=== PATIENT | male | born 1955 | race Caucasian/White ===

== ENCOUNTER 2018-03-25 17:13 | Inpatient (IN) | payer OTHER ==
[~2018-03-25] VITALS: Ht 175.3 cm; Wt 77.1 kg
[2018-03-25] MEDS ORDERED: PSEUDOEPHEDRINE60 MG PO (17:26)
[2018-03-25] MEDS ORDERED: TRAZODONE HCL50 MG ORAL ×2 (17:26→19:24)
[2018-03-25] MEDS ORDERED: LISINOPRIL20 MG ORAL (17:26)
--- NOTE | 2018-03-25 17:35 | NUR ---
ED Nurse Note: patient walkwd in by him self from home with steady gait, he complains for pain in his RLQ of the abdomen, no V/N/D. Patient AAO x 4, skin is warm to touch, dry and intact. Respiration is even no SOB noted.
[2018-03-25] MEDS ORDERED: Isovue-300 100ml vial INJ PRN (17:45)
--- NOTE | 2018-03-25 17:52 | Emergency Room Report ---
History of Present Illness General Chief Complaint: Abdominal Pain Source: Patient Present Illness HPI Patient is a 62-year-old male presented after increased right lower abdominal pain. Patient reports having gradual onset of pain over the past few days. He reported having initially generalized abdominal pain for approximately 3 days. This subsequently localized to the right lower abdomen. Patient a prior history of HIV. He denies being febrile. He had not been vomiting. He denies any urinary symptoms. He denies any rectal bleeding. He reports having normal bowel movements. Allergies: Coded Allergies: No Known Allergies (Unverified , 03/25/18) Patient History Past Medical History: see triage record Reviewed Nursing Documentation: PMH: Agreed; PSxH: Agreed Nursing Documentation-PMH Past Medical History: No History, Except For Hx Hypertension: Yes Review of Systems All Other Systems: negative except mentioned in HPI Physical Exam Vital Signs Date Time Temp Pulse Resp B/P (MAP) Pulse Ox O2 Delivery O2 Flow Rate FiO2 03/25/18 17:19 98.4 78 17 145/88 99 Room Air Sp02 EP Interpretation: reviewed, normal General Appearance: normal inspection, well appearing, no apparent distress, alert, GCS 15 Head: atraumatic ENT: normal ENT inspection, hearing grossly normal, normal voice Neck: normal inspection, full range of motion, supple, no bony tend Respiratory: normal inspection, lungs clear, normal breath sounds, no respiratory distress, no retraction, no wheezing Cardiovascular #1: regular rate, rhythm, no edema Gastrointestinal: normal bowel sounds, soft, no guarding, no hernia, tenderness - suprapubic, right lower abdomen Genitourinary: no CVA tenderness Musculoskeletal: normal inspection, back normal, normal range of motion Neurologic: normal inspection, alert, responsive, speech normal Psychiatric: normal inspection, judgement/insight normal, mood/affect normal Skin: normal inspection, normal color, no rash Medical Decision Making Diagnostic Impression: Primary Impression: Appendicitis ER Course Patient presented for abdominal pain. Differential diagnoses included ischemic bowel, appendicitis, perforated viscus, abdominal aortic aneurysm, inferior myocardial infarction, viral gastroenteritis among others. Because of complexity of patient's case laboratory testing and imaging studies were ordered.Laboratory testing was notable for normal white blood count. Patient was noted to have persistent right-sided abdominal pain. CT of the abdomen pelvis read by radiology showed 1.8 cm appendix with appendicolith and inflammatory changes. Patient was given Zosyn.Dr. Bryant was contacted for surgical consult. Dr. Marshal Byrd was contacted for Dr. Mittal for inpatient management due to covering physician for Dr. Alber Cobb Labs Test 03/25/18 17:50 White Blood Count 9.5 K/UL (4.8-10.8) Red Blood Count 4.59 M/UL (4.70-6.10) Hemoglobin 15.1 G/DL (14.2-18.0) Hematocrit 44.9 % (42.0-52.0) Mean Corpuscular Volume 98 FL (80-99) Mean Corpuscular Hemoglobin 32.9 PG (27.0-31.0) Mean Corpuscular Hemoglobin Concent 33.6 G/DL (32.0-36.0) Red Cell Distribution Width 12.2 % (11.6-14.8) Platelet Count 209 K/UL (150-450) Mean Platelet Volume 6.1 FL (6.5-10.1) Neutrophils (%) (Auto) 69.2 % (45.0-75.0) Lymphocytes (%) (Auto) 18.8 % (20.0-45.0) Monocytes (%) (Auto) 8.2 % (1.0-10.0) Eosinophils (%) (Auto) 2.9 % (0.0-3.0) Basophils (%) (Auto) 0.9 % (0.0-2.0) Prothrombin Time 9.8 SEC (9.30-11.50) Prothromb Time International Ratio 0.9 (0.9-1.1) Activated Partial Thromboplast Time 29 SEC (23-33) Urine Color Yellow Urine Appearance Clear Urine pH 5 (4.5-8.0) Urine Specific [place] 1.025 (1.005-1.035) Urine Protein 2+ (NEGATIVE) Urine Glucose (UA) Negative (NEGATIVE) Urine Ketones 1+ (NEGATIVE) Urine Blood 2+ (NEGATIVE) Urine Nitrite Negative (NEGATIVE) Urine Bilirubin Negative (NEGATIVE) Urine Urobilinogen Normal MG/DL (0.0-1.0) Urine Leukocyte Esterase 1+ (NEGATIVE) Urine RBC 5-10 /HPF (0 - 0) Urine WBC 2-4 /HPF (0 - 0) Urine Squamous Epithelial Cells None /LPF (NONE/OCC) Urine Bacteria Few /HPF (NONE) Sodium Level 138 MMOL/L (136-145) Potassium Level 3.8 MMOL/L (3.5-5.1) Chloride Level 102 MMOL/L (98-107) Carbon Dioxide Level 30 MMOL/L (21-32) Anion Gap 7 mmol/L (5-15) Blood Urea Nitrogen 15 mg/dL (7-18) Creatinine 1.4 MG/DL (0.55-1.30) Estimat Glomerular Filtration Rate 51.2 mL/min (>60) Glucose Level 94 MG/DL (74-106) Calcium Level 9.1 MG/DL (8.5-10.1) Total Bilirubin 0.3 MG/DL (0.2-1.0) Aspartate Amino Transf (AST/SGOT) 26 U/L (15-37) Alanine Aminotransferase (ALT/SGPT) 30 U/L (12-78) Alkaline Phosphatase 84 U/L (46-116) Troponin I 0.000 ng/mL (0.000-0.056) Total Protein 8.0 G/DL (6.4-8.2) Albumin 3.3 G/DL (3.4-5.0) Globulin 4.7 g/dL Albumin/Globulin Ratio 0.7 (1.0-2.7) Lipase 151 U/L (73-393) EKG Diagnostic Results Rate: normal - 82 Rhythm: NSR ST Segments: no acute changes Last Vital Signs Date Time Temp Pulse Resp B/P (MAP) Pulse Ox O2 Delivery O2 Flow Rate FiO2 03/25/18 17:19 98.4 78 17 145/88 99 Room Air Status: unchanged Disposition: ADMITTED INPATIENT Condition: Serious Referrals: NON PHYSICIAN (PCP) Pollo Quintana MD Mar 25, 2018 17:52
[2018-03-25 18:05] LABS: BASOPHILS % (AUTO) 0.9 % (0.0-2.0); EOSINOPHILS % (AUTO) 2.9 % (0.0-3.0); HEMATOCRIT 44.9 % (42.0-52.0); HEMOGLOBIN 15.1 G/DL (14.2-18.0); LYMPHOCYTES % (AUTO) 18.8 % (20.0-45.0); MEAN CORPUSCULAR VOLUME 98 FL (80-99); MONOCYTES % (AUTO) 8.2 % (1.0-10.0); NEUTROPHILS % (AUTO) 69.2 % (45.0-75.0); PLATELET COUNT 209 K/UL (150-450); RED BLOOD COUNT 4.59 M/UL (4.70-6.10); RED CELL DISTRIBUTION WIDTH 12.2 % (11.6-14.8); WHITE BLOOD COUNT 9.5 K/UL (4.8-10.8)
--- NOTE | 2018-03-25 18:09 | Consultation ---
History of Present Illness General Date patient seen: Mar 25, 2018 Reason for Hospitalization: Abdominal Pain Present Illness HPI 62 year old male with Hx of HIV, HTN, dyslipidemia presented with 3-4 days of abdominal discomfort. states pain initially mid abdominal but has since localized to the RLQ. Went to his PCP today for evaluation. PCP astutely identified possibility of appendicitis given history and exam and referred him to ED for evaluation by surgeon. I was called to evaluate patient. patient seen, chart reviewed, patient examined. no n/v/f/c. normal BM's. had had 3 doses of oral Augmentin 500mg already. pain cramping RLQ without radiation. no prior events. states outside labs demonstrated elevated ESR and leukocytosis Allergies: Coded Allergies: No Known Allergies (Unverified , 03/25/18) Medication History Scheduled Lisinopril (Lisinopril*), 20 MG ORAL DAILY, (Reported) Testosterone Cypionate (Testosterone Cypionate), 400 MG IM every 2 weeks, ( Reported) Scheduled PRN Acetaminophen* (Acetaminophen Extra Strength*), 1,000 MG ORAL Q6H PRN for chills , (Reported) Ibuprofen* (Motrin*), 600 MG ORAL THREE TIMES A DAY PRN for chills, (Reported) Pseudoephedrine Hcl* (Nexafed*), 30 MG ORAL Q6H PRN for congestion, (Reported) Trazodone Hcl* (Desyrel*), 50 MG ORAL BEDTIME PRN for insomnia, (Reported) Patient History History Provided By: Patient, Medical Record, PMD Healthcare decision maker Resuscitation status Advanced Directive on File Past Medical/Surgical History Past Medical/Surgical History: (1) Abdominal pain Review of Systems Review of Symptoms General ROS: no weight loss or fever Psychological ROS: no depression or mood changes, no memory loss Ophthalmic ROS: no visual changes or eye irritation ENT ROS: no nasal congestion, hearing loss, dizziness Allergy and Immunology ROS: no allergic symptoms or urticaria Hematological and Lymphatic ROS: no swollen glands, unusual bleeding or bruising Endocrine ROS: no polyuria, polydipsia, weight changes, temperature intolerance Respiratory ROS: no cough, shortness of breath, or wheezing Cardiovascular ROS: no chest pain or dyspnea on exertion Gastrointestinal ROS: denies abdominal pain, bright red blood in stool. Musculoskeletal ROS: no myalgias or arthralgias Neurological ROS: no TIA or stroke symptoms Dermatological ROS: no new or changing skin lesions, rashes or pruritis Physical Exam Physical Exam General appearance: alert, cooperative, no distress, appears stated age Head: Normocephalic, without obvious abnormality, atraumatic Eyes: conjunctivae/corneas clear. PERRL, EOM's intact. Fundi benign Throat: Lips, mucosa, and tongue normal. Teeth and gums normal Neck: supple, symmetrical, trachea midline, no adenopathy, thyroid: not enlarged, symmetric, no tenderness/mass/nodules, no carotid bruit and no JVD Lungs: clear to auscultation bilaterally Heart: regular rate and rhythm, S1, S2 normal, no murmur, click, rub or gallop Abdomen: soft, tender in RLQ with rebound. Bowel sounds normal. No masses, no organomegaly Extremities: extremities normal, atraumatic, no cyanosis or edema Pulses: 2+ and symmetric Skin: Skin color, texture, turgor normal. No rashes or lesions Neurologic: Grossly normal Last 24 Hour Vital Signs Date Time Temp Pulse Resp B/P (MAP) Pulse Ox O2 Delivery O2 Flow Rate FiO2 03/25/18 17:19 98.4 78 17 145/88 99 Room Air Laboratory Tests Test 03/25/18 17:50 White Blood Count Pending Red Blood Count Pending Hemoglobin Pending Hematocrit Pending Mean Corpuscular Volume Pending Mean Corpuscular Hemoglobin Pending Mean Corpuscular Hemoglobin Concent Pending Red Cell Distribution Width Pending Platelet Count Pending Mean Platelet Volume Pending Neutrophils (%) (Auto) Pending Lymphocytes (%) (Auto) Pending Monocytes (%) (Auto) Pending Eosinophils (%) (Auto) Pending Basophils (%) (Auto) Pending Prothrombin Time Pending Prothromb Time International Ratio Pending Activated Partial Thromboplast Time Pending Urine Color Pending Urine Appearance Pending Urine pH Pending Urine Specific [place] Pending Urine Protein Pending Urine Glucose (UA) Pending Urine Ketones Pending Urine Blood Pending Urine Nitrite Pending Urine Bilirubin Pending Urine Urobilinogen Pending Urine Leukocyte Esterase Pending Sodium Level Pending Potassium Level Pending Chloride Level Pending Carbon Dioxide Level Pending Blood Urea Nitrogen Pending Creatinine Pending Estimat Glomerular Filtration Rate Pending Glucose Level Pending Calcium Level Pending Total Bilirubin Pending Aspartate Amino Transf (AST/SGOT) Pending Alanine Aminotransferase (ALT/SGPT) Pending Alkaline Phosphatase Pending Troponin I Pending Total Protein Pending Albumin Pending Globulin Pending Lipase Pending Height (Feet): 5 Height (Inches): 9.00 Weight (Pounds): 170 Medications Current Medications Medications (Trade) Dose Ordered Sig/Nathan Route PRN Reason Start Time Stop Time Status Last Admin Dose Admin Iopamidol (Isovue-300 100ml) 100 ml NOW PRN INJ Radiology Procedure 03/25/18 17:45 Piperacillin Sod/ Tazobactam Sod 3.375 gm/Sodium Chloride 110 ml @ 220 mls/hr ONCE ONCE IVPB 03/25/18 18:15 03/25/18 18:44 Assessment/Plan Problem List: (1) Abdominal pain Assessment & Plan: 62M with abdominal pain. Likely appendicitis given history and exam. discussed options and recommendations. recommend CT scan to ensure appendicitis and not complicated given duration NPO IV fluids IV Abx pending labs thank you. will follow with recs. ICD Codes: R10.9 - Unspecified abdominal pain SNOMED: [id number] Juan Bryant Mar 25, 2018 18:09
[2018-03-25 18:10] LABS: APPEARANCE,URINE CLEAR; BILIRUBIN, URINE NEGATIVE (NEGATIVE); GLUCOSE, URINE (UA) NEGATIVE (NEGATIVE); KETONES,URINE 1+ (NEGATIVE); LEUKOCYTE ESTERASE ,URINE 1+ (NEGATIVE); NITRITE,URINE NEGATIVE (NEGATIVE); PH,URINE 5 (4.5-8.0); PROTEIN,URINE 2+ (NEGATIVE); UROBILINOGEN,URINE NORMAL MG/DL (0.0-1.0)
[2018-03-25 18:12] LABS: COLOR,URINE YELLOW
[2018-03-25] MEDS ORDERED: Piperacillin/Tazobactam 3.375 GM in NS 110 ML IVPB ONE (18:15)
[2018-03-25 18:17] LABS: INR 0.9 (0.9-1.1)
[2018-03-25 18:22] LABS: ANION GAP 7 mmol/L (5-15); BLOOD UREA NITROGEN 15 mg/dL (7-18); CALCIUM 9.1 MG/DL (8.5-10.1); CARBON DIOXIDE 30 MMOL/L (21-32); CHLORIDE 102 MMOL/L (98-107); CREATININE 1.4 MG/DL (0.55-1.30); POTASSIUM 3.8 MMOL/L (3.5-5.1); SODIUM 138 MMOL/L (136-145)
[2018-03-25 18:26] LABS: ALANINE AMINOTRANSFERASE 30 U/L (12-78); ALBUMIN 3.3 G/DL (3.4-5.0); ALBUMIN/GLOBULIN RATIO 0.7 (1.0-2.7); ALKALINE PHOSPHATASE 84 U/L (46-116); ASPARTATE AMINO TRANSFERASE 26 U/L (15-37); BILIRUBIN,TOTAL 0.3 MG/DL (0.2-1.0)
[2018-03-25 18:40] VITALS: BP 142/90
--- NOTE | 2018-03-25 18:59 | NUR ---
ED Nurse Note: patient went for CT of abdomen
--- NOTE | 2018-03-25 19:02 | NUR ---
HAND-OFF: Report given to LIVE Muñoz.
--- NOTE | 2018-03-25 19:13 | NUR ---
ED Nurse Note: received report from Harpreet MANCINI and assumed care, pt came back from CT, ERMD at the bedsidevss, NSR on radiation monitor, airway intact, resp even and unlabored, will cont monitor. pt advised to notify staff if needed assist.
[2018-03-25] MEDS ORDERED: TESTOSTERO200 MG/1 M IM ×2 (19:22)
[2018-03-25] MEDS ORDERED: ACETAMINOPHEN500 M3 ORAL (19:22)
[2018-03-25] MEDS ORDERED: IBUPROFEN600 MG ORAL (19:22)
[2018-03-25] MEDS ORDERED: NEXAFED30 MG ORAL (19:24)
--- NOTE | 2018-03-25 19:55 | Diagnostic Imaging Report ---
History: ABD PAIN Exam: CT ABDOMEN + PELVIS With Contrast Technique more: CTDI is 14.12 mGy and DLP is 720 mGy-cm. Technique more: One or more of the following dose reduction techniques were used: automated exposure control, adjustment of the mA and/or kV according to patient size, use of iterative reconstruction technique. Comparison: None available FINDINGS: Small platelike area of scar or atelectasis right base. Abdominal solid organs, gallbladder and abdominal aorta appear within limits. Abnormal fluid-filled distended appendix measuring 1.8 cm with surrounding stranding and edema and 9 mm appendicolith at its base and wall edema of the adjacent cecum for example axial 58 and coronal 32. [place] artifact from right hip replacement. No evidence of abscess, bowel obstruction or free air identified. IMPRESSION: Abnormal fluid-filled distended appendix measuring 1.8 cm with surrounding stranding and edema and 9 mm appendicolith at its base and wall edema of the adjacent cecum for example axial 58 and coronal 32. [place] artifact from right hip replacement. No evidence of abscess, bowel obstruction or free air identified. [employer] 03/25/18 19:53 Call Doctor Regarding Appendicitis, called Dr. Quintana on 03/25 19:52 (-08:00)
--- NOTE | 2018-03-25 20:14 | NUR ---
ED Nurse Note: pt transferred to [place] via wheelchair with medtronics technician, all belongings sent with pt, report given to LIVE Bynum to continue care and endorsed care, pt vss, airway intact, resp even and unlabored, afebrile, -n/v/d, ambulatory w/ steady gait.
--- NOTE | 2018-03-25 20:20 | NUR ---
NURSE NOTES: Received report from NURSE CLINICIAN Stacey. Pt is A&O x4, ambulatory, VSS. IV site dry & intact. Pt on RA, denies SOB or distress. Pt c/o 2/10 pain in the RLQ of abdomen. notified of pt arrival, orders received & carried out. Belongings taken home w/ pt's partner, David. Pt oriented to room, call light in reach, bed in lowest position, side rails up x2. Will continue to monitor pt.
[2018-03-25] MEDS ORDERED: Morphine Sulfate 2mg/ml Inj IVP PRN (21:00)
[2018-03-25] MEDS: D5 1/2NS 1,000 ML IV SCH (22:18)
[2018-03-25] MEDS: TraZODone 50mg tab ORAL PRN (23:08)
[2018-03-25] MEDS: Acetaminophen 500mg (ES) tab ORAL PRN (23:08)
[2018-03-25 23:54] LABS: APPEARANCE,URINE CLEAR; BILIRUBIN, URINE NEGATIVE (NEGATIVE); COLOR,URINE PALE YELLOW; GLUCOSE, URINE (UA) NEGATIVE (NEGATIVE); KETONES,URINE NEGATIVE (NEGATIVE); LEUKOCYTE ESTERASE ,URINE 1+ (NEGATIVE); NITRITE,URINE NEGATIVE (NEGATIVE); PH,URINE 5 (4.5-8.0); PROTEIN,URINE 2+ (NEGATIVE); UROBILINOGEN,URINE NORMAL MG/DL (0.0-1.0)
[2018-03-26] VITALS (16 sets, daily range): BP systolic 112–166; BP diastolic 59–92
[2018-03-26 06:54] LABS: ANION GAP 6 mmol/L (5-15); BLOOD UREA NITROGEN 13 mg/dL (7-18); CALCIUM 8.9 MG/DL (8.5-10.1); CARBON DIOXIDE 28 MMOL/L (21-32); CHLORIDE 104 MMOL/L (98-107); CREATININE 1.2 MG/DL (0.55-1.30); POTASSIUM 3.7 MMOL/L (3.5-5.1); SODIUM 138 MMOL/L (136-145)
[2018-03-26 07:01] LABS: BASOPHILS % (AUTO) 0.6 % (0.0-2.0); EOSINOPHILS % (AUTO) 5.8 % (0.0-3.0); HEMATOCRIT 39.8 % (42.0-52.0); HEMOGLOBIN 13.9 G/DL (14.2-18.0); LYMPHOCYTES % (AUTO) 20.2 % (20.0-45.0); MEAN CORPUSCULAR VOLUME 96 FL (80-99); MONOCYTES % (AUTO) 10.7 % (1.0-10.0); NEUTROPHILS % (AUTO) 62.7 % (45.0-75.0); PLATELET COUNT 194 K/UL (150-450); RED BLOOD COUNT 4.13 M/UL (4.70-6.10); WHITE BLOOD COUNT 7.2 K/UL (4.8-10.8)
[2018-03-26] MEDS ORDERED: Neostigmine 1mg/ml 10ml Inj ONE (07:30)
[2018-03-26] MEDS ORDERED: LR 1000ml ONE (07:30)
--- NOTE | 2018-03-26 07:53 | NUR ---
HAND-OFF: Report given to Maribel RN. Pt is stable.
--- NOTE | 2018-03-26 08:00 | NUR ---
NURSE NOTES: received patient A/A/Ox4, ambulates with a steady gait. NPO for procedure. had voided and moved bm. patient appeared irritable and impulsive this am. kept bed in the lowest position. call light is within reach. siderails are up x2. will cont to monitor.
[2018-03-26] MEDS: Lisinopril 20mg tab ORAL SCH (08:53)
[2018-03-26] MEDS ORDERED: Midazolam 2mg/2ml Inj ONE (09:11)
[2018-03-26] MEDS ORDERED: fentaNYL 100 mcg/2 mL IV ONE (09:11)
[2018-03-26] MEDS ORDERED: Bupivacaine 0.25% Inj 30ml INJ ONE (09:13)
[2018-03-26] MEDS ORDERED: Bupivacaine w/Epi 0.5% 30ml Vial INJ ONE (09:13)
--- NOTE | 2018-03-26 09:15 | NUR ---
NURSE NOTES: hand off done with Bishnu(transporter) prior procedure. Dr Bryant @ bedside and speaking with the patient. patient had signed consent for procedure. IV heplock is patent and intact. patient able to ambulate without any distress. Kept NPO. will cont to monitor.
--- NOTE | 2018-03-26 09:21 | Pre-Procedure Note/Attestation ---
Pre-Procedure Note/Attestation Complete Prior to Procedure Planned Procedure: not applicable Procedure Narrative: laparoscopic appendectomy Indications for Procedure Pre-Operative Diagnosis: acute appendicitis Attestation I attest that I discussed the nature of the procedure; its benefits; risks and complications; and alternatives (and the risks and benefits of such alternatives ), prior to the procedure, with the patient (or the patient's legal b2b sales representative). I attest that, if there was a reasonable possibility of needing a blood transfusion, the patient (or the patient's legal b2b sales representative) was given the [facility] standardized written summary, pursuant to the [place] Blood Safety Act ([place] Health and Safety Code # 1645, as amended). I attest that I re-evaluated the patient just prior to the surgery and that there has been no change in the patient's H&P, except as documented below: Juan Bryant Mar 26, 2018 09:21
[2018-03-26] MEDS ORDERED: Succinylcholine 20mg/ml 10ml vial ONE (09:22)
[2018-03-26] MEDS ORDERED: Zemuron 50mg/5ml Inj IV ONE (09:22)
--- NOTE | 2018-03-26 09:23 | History and Physical ---
History of Present Illness General Date patient seen: Mar 26, 2018 Time patient seen: 09:22 Reason for Hospitalization: Abdominal Pain Present Illness HPI 62 year old man with HIV, HTN, dyslipidemia presented with 3-4 days of abdominal discomfort. Pain was initially mid abdominal but has since localized to the RLQ. Went to his PCP for evaluation. PCP astutely identified possibility of appendicitis given history and exam and referred him to ED for evaluation by surgeon. CT in ED suggested appendicitis and he was seen by general surgery who plans for appendectomy today. Denies fever, chills. Family Hx: No premature CAD Social Hx:No tobacco use Allergies: Coded Allergies: No Known Allergies (Unverified , 03/25/18) Medication History Scheduled Lisinopril (Lisinopril*), 20 MG ORAL DAILY, (Reported) Testosterone Cypionate (Testosterone Cypionate), 400 MG IM every 2 weeks, ( Reported) Scheduled PRN Acetaminophen* (Acetaminophen Extra Strength*), 1,000 MG ORAL Q6H PRN for chills , (Reported) Ibuprofen* (Motrin*), 600 MG ORAL THREE TIMES A DAY PRN for chills, (Reported) Pseudoephedrine Hcl* (Nexafed*), 30 MG ORAL Q6H PRN for congestion, (Reported) Trazodone Hcl* (Desyrel*), 50 MG ORAL BEDTIME PRN for insomnia, (Reported) Patient History Healthcare decision maker Resuscitation status Full Code Advanced Directive on File Review of Systems Constitutional: Denies: chills Eye: Denies: eye pain ENT: Denies: ear pain Respiratory: Denies: cough, shortness of breath Cardiovascular: Denies: chest pain, palpitations Gastrointestinal: Reports: abdominal pain; Denies: diarrhea, nausea, vomiting Neurological: Denies: headache Hematologic/Lymphatic: Denies: anemia Physical Exam General Appearance: no apparent distress, alert HEENT: atraumatic, anicteric Neck: non-tender, normal alignment Respiratory/Chest: chest wall non-tender, lungs clear, normal breath sounds Cardiovascular/Chest: normal peripheral pulses, normal rate, regular rhythm Abdomen: normal bowel sounds, non tender Extremities: normal range of motion, non-tender 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 II-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 grossly normal, no motor/sensory deficits Last 24 Hour Vital Signs Date Time Temp Pulse Resp B/P (MAP) Pulse Ox O2 Delivery O2 Flow Rate FiO2 03/26/18 08:00 97.5 61 17 140/80 (100) 100 03/26/18 04:00 97.5 56 20 112/59 (76) 96 03/26/18 00:00 98.0 68 18 118/72 (87) 96 03/25/18 22:07 Room Air 03/25/18 20:13 99.2 80 16 131/74 100 Room Air 03/25/18 18:40 98.2 82 22 142/90 98 Room Air 03/25/18 18:40 82 22 Room Air 03/25/18 17:19 98.4 78 17 145/88 99 Room Air Intake and Output 03/25/18 03/26/18 19:00 07:00 Intake Total 1000 ml 840 ml Balance 1000 ml 840 ml Intake Oral 240 ml IV Total 1000 ml 600 ml # Voids 2 Laboratory Tests Test 03/25/18 17:50 03/25/18 23:50 03/26/18 04:40 White Blood Count 9.5 K/UL (4.8-10.8) 7.2 K/UL (4.8-10.8) Red Blood Count 4.59 M/UL (4.70-6.10) L 4.13 M/UL (4.70-6.10) L Hemoglobin 15.1 G/DL (14.2-18.0) 13.9 G/DL (14.2-18.0) L Hematocrit 44.9 % (42.0-52.0) 39.8 % (42.0-52.0) L Mean Corpuscular Volume 98 FL (80-99) 96 FL (80-99) Mean Corpuscular Hemoglobin 32.9 PG (27.0-31.0) H 33.7 PG (27.0-31.0) H Mean Corpuscular Hemoglobin Concent 33.6 G/DL (32.0-36.0) 34.9 G/DL (32.0-36.0) Red Cell Distribution Width 12.2 % (11.6-14.8) 12.0 % (11.6-14.8) Platelet Count 209 K/UL (150-450) 194 K/UL (150-450) Mean Platelet Volume 6.1 FL (6.5-10.1) L 6.4 FL (6.5-10.1) L Neutrophils (%) (Auto) 69.2 % (45.0-75.0) 62.7 % (45.0-75.0) Lymphocytes (%) (Auto) 18.8 % (20.0-45.0) L 20.2 % (20.0-45.0) Monocytes (%) (Auto) 8.2 % (1.0-10.0) 10.7 % (1.0-10.0) H Eosinophils (%) (Auto) 2.9 % (0.0-3.0) 5.8 % (0.0-3.0) H Basophils (%) (Auto) 0.9 % (0.0-2.0) 0.6 % (0.0-2.0) Prothrombin Time 9.8 SEC (9.30-11.50) Prothromb Time International Ratio 0.9 (0.9-1.1) Activated Partial Thromboplast Time 29 SEC (23-33) Urine Color Yellow Pale yellow Urine Appearance Clear Clear Urine pH 5 (4.5-8.0) 5 (4.5-8.0) Urine Specific [place] 1.025 (1.005-1.035) 1.010 (1.005-1.035) Urine Protein 2+ (NEGATIVE) H 2+ (NEGATIVE) H Urine Glucose (UA) Negative (NEGATIVE) Negative (NEGATIVE) Urine Ketones 1+ (NEGATIVE) H Negative (NEGATIVE) Urine Blood 2+ (NEGATIVE) H 2+ (NEGATIVE) H Urine Nitrite Negative (NEGATIVE) Negative (NEGATIVE) Urine Bilirubin Negative (NEGATIVE) Negative (NEGATIVE) Urine Urobilinogen Normal MG/DL (0.0-1.0) Normal MG/DL (0.0-1.0) Urine Leukocyte Esterase 1+ (NEGATIVE) H 1+ (NEGATIVE) H Urine RBC 5-10 /HPF (0 - 0) H 0-2 /HPF (0 - 0) H Urine WBC 2-4 /HPF (0 - 0) 0 /HPF (0 - 0) Urine Squamous Epithelial Cells None /LPF (NONE/OCC) None /LPF (NONE/OCC) Urine Bacteria Few /HPF (NONE) Occasional /HPF (NONE) Sodium Level 138 MMOL/L (136-145) 138 MMOL/L (136-145) Potassium Level 3.8 MMOL/L (3.5-5.1) 3.7 MMOL/L (3.5-5.1) Chloride Level 102 MMOL/L (98-107) 104 MMOL/L (98-107) Carbon Dioxide Level 30 MMOL/L (21-32) 28 MMOL/L (21-32) Anion Gap 7 mmol/L (5-15) 6 mmol/L (5-15) Blood Urea Nitrogen 15 mg/dL (7-18) 13 mg/dL (7-18) Creatinine 1.4 MG/DL (0.55-1.30) H 1.2 MG/DL (0.55-1.30) Estimat Glomerular Filtration Rate 51.2 mL/min (>60) > 60 mL/min (>60) Glucose Level 94 MG/DL (74-106) 99 MG/DL (74-106) Calcium Level 9.1 MG/DL (8.5-10.1) 8.9 MG/DL (8.5-10.1) Total Bilirubin 0.3 MG/DL (0.2-1.0) Aspartate Amino Transf (AST/SGOT) 26 U/L (15-37) Alanine Aminotransferase (ALT/SGPT) 30 U/L (12-78) Alkaline Phosphatase 84 U/L (46-116) Troponin I 0.000 ng/mL (0.000-0.056) Total Protein 8.0 G/DL (6.4-8.2) Albumin 3.3 G/DL (3.4-5.0) L Globulin 4.7 g/dL Albumin/Globulin Ratio 0.7 (1.0-2.7) L Lipase 151 U/L (73-393) Height (Feet): 5 Height (Inches): 9.00 Weight (Pounds): 170 Medications Current Medications Medications (Trade) Dose Ordered Sig/Nathan Route PRN Reason Start Time Stop Time Status Last Admin Dose Admin Acetaminophen (Tylenol) 500 mg Q6H PRN ORAL Mild Pain/Temp > 100.5 03/25/18 21:30 04/24/18 21:29 03/25/18 23:08 Dextrose/Sodium Chloride 1,000 ml @ 75 mls/hr [id number] IV 03/25/18 21:00 04/24/18 20:59 03/25/18 22:18 Iopamidol (Isovue-300 100ml) 100 ml NOW PRN INJ Radiology Procedure 03/25/18 17:45 Lisinopril (Prinivil) 20 mg DAILY ORAL 03/26/18 09:00 04/25/18 08:59 Morphine Sulfate (Morphine Sulfate) 2 mg Q4H PRN IVP Severe Pain (Pain Scale 7-10) 03/25/18 21:00 04/01/18 20:59 Trazodone HCl (Desyrel) 50 mg BEDTIME PRN ORAL Insomnia 03/25/18 21:30 04/24/18 21:29 03/25/18 23:08 Assessment/Plan Assessment/Plan #Acute appendicitis -admit to medical service -start IV Zosyn -NPO, IV fluids, anti-emetics and analgesics -seen by surgery for appendectomy today #History of HTN -resume lisinopril #HIV -outpatient follow up VTE PPx SCD Full Code I spent 70 minutes on this patient's case, and 35 minutes was dedicated to counseling and/or care coordination. Slava Cisneros MD Mar 26, 2018 09:23
[2018-03-26] MEDS ORDERED: Lidocaine 1% MPF 10mg/ml 5ml ONE (09:26)
[2018-03-26] MEDS ORDERED: Propofol 200mg/20ml IV ONE (09:26)
[2018-03-26] MEDS ORDERED: cefOXitin 1gm Inj ONE (09:31)
[2018-03-26] MEDS ORDERED: NS Irrig 1000ml IRRIG ONE (10:10)
[2018-03-26] MEDS ORDERED: NeoSporin Gu Irrig 1ml Amp IRRIG ONE (10:19)
[2018-03-26] MEDS ORDERED: Bacitracin 50000 Units Vial ONE (10:19)
--- NOTE | 2018-03-26 10:19 | Anethesia Preoperative Eval ---
Anesthesia Pre-op PMH/ROS General Date of Evaluation: Mar 26, 2018 Time of Evaluation: 09:25 Anesthesiologist: Rakel ASA Score: ASA 2 Mallampati Score Class I : Soft palate, uvula, fauces, pillars visible Class II: Soft palate, uvula, fauces visible Class III: Soft palate, base of uvula visible Class IV: Only hard plate visible Mallampati Classification: Class II Surgeon: Allan Diagnosis: Acute appendicitis Surgical Procedure: Laparoscopic appendectomy Anesthesia History: none Family History: no anesthesia problems Allergies: Coded Allergies: No Known Allergies (Unverified , 03/25/18) Medications: see eMAR Patient NPO?: Yes Past Medical History Cardiovascular: Reports: HTN - s; Denies: CAD, FL, valve dz, arrhythmia, other Pulmonary: Denies: asthma, COPD, NASIMA, other Gastrointestinal/Genitourinary: Reports: GERD - mild; Denies: CRI, ESRD, other Neurologic/Psychiatric: Denies: dementia, CVA, depression/anxiety, TIA, other Endocrine: Denies: DM, hypothyroidism, steroids, other HEENT: Denies: cataract (L), cataract (R), glaucoma, TELLER (L), TELLER (R), other Hematology/Immune: Reports: other - 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 Exam Physician Exam Last Vital Signs Date Time Temp Pulse Resp B/P (MAP) Pulse Ox O2 Delivery O2 Flow Rate FiO2 03/26/18 08:00 97.5 61 17 140/80 (100) 100 03/25/18 22:07 Room Air Constitutional: NAD Neurologic: CN 2-12 intact Cardiovascular: RRR, no M/R/G Respiratory: CTA Gastrointestinal: other - sone tenderness on palpation Airway Exam Mallampati Score: Class II MO: full Neck: flexible ROM: full Teeth: intact Dentures: no upper, no lower Anesthesia Pre-op A/P Labs Hematology Test 03/25/18 17:50 03/26/18 04:40 White Blood Count 9.5 K/UL (4.8-10.8) 7.2 K/UL (4.8-10.8) Red Blood Count 4.59 M/UL (4.70-6.10) L 4.13 M/UL (4.70-6.10) L Hemoglobin 15.1 G/DL (14.2-18.0) 13.9 G/DL (14.2-18.0) L Hematocrit 44.9 % (42.0-52.0) 39.8 % (42.0-52.0) L Mean Corpuscular Volume 98 FL (80-99) 96 FL (80-99) Mean Corpuscular Hemoglobin 32.9 PG (27.0-31.0) H 33.7 PG (27.0-31.0) H Mean Corpuscular Hemoglobin Concent 33.6 G/DL (32.0-36.0) 34.9 G/DL (32.0-36.0) Red Cell Distribution Width 12.2 % (11.6-14.8) 12.0 % (11.6-14.8) Platelet Count 209 K/UL (150-450) 194 K/UL (150-450) Mean Platelet Volume 6.1 FL (6.5-10.1) L 6.4 FL (6.5-10.1) L Neutrophils (%) (Auto) 69.2 % (45.0-75.0) 62.7 % (45.0-75.0) Lymphocytes (%) (Auto) 18.8 % (20.0-45.0) L 20.2 % (20.0-45.0) Monocytes (%) (Auto) 8.2 % (1.0-10.0) 10.7 % (1.0-10.0) H Eosinophils (%) (Auto) 2.9 % (0.0-3.0) 5.8 % (0.0-3.0) H Basophils (%) (Auto) 0.9 % (0.0-2.0) 0.6 % (0.0-2.0) Coagulation Test 03/25/18 17:50 Prothrombin Time 9.8 SEC (9.30-11.50) Prothromb Time International Ratio 0.9 (0.9-1.1) Activated Partial Thromboplast Time 29 SEC (23-33) Chemistry Test 03/25/18 17:50 03/26/18 04:40 Sodium Level 138 MMOL/L (136-145) 138 MMOL/L (136-145) Potassium Level 3.8 MMOL/L (3.5-5.1) 3.7 MMOL/L (3.5-5.1) Chloride Level 102 MMOL/L (98-107) 104 MMOL/L (98-107) Carbon Dioxide Level 30 MMOL/L (21-32) 28 MMOL/L (21-32) Anion Gap 7 mmol/L (5-15) 6 mmol/L (5-15) Blood Urea Nitrogen 15 mg/dL (7-18) 13 mg/dL (7-18) Creatinine 1.4 MG/DL (0.55-1.30) H 1.2 MG/DL (0.55-1.30) Estimat Glomerular Filtration Rate 51.2 mL/min (>60) > 60 mL/min (>60) Glucose Level 94 MG/DL (74-106) 99 MG/DL (74-106) Calcium Level 9.1 MG/DL (8.5-10.1) 8.9 MG/DL (8.5-10.1) Total Bilirubin 0.3 MG/DL (0.2-1.0) Aspartate Amino Transf (AST/SGOT) 26 U/L (15-37) Alanine Aminotransferase (ALT/SGPT) 30 U/L (12-78) Alkaline Phosphatase 84 U/L (46-116) Troponin I 0.000 ng/mL (0.000-0.056) Total Protein 8.0 G/DL (6.4-8.2) Albumin 3.3 G/DL (3.4-5.0) L Globulin 4.7 g/dL Albumin/Globulin Ratio 0.7 (1.0-2.7) L Lipase 151 U/L (73-393) Risk Assessment & Plan Assessment: ASA 2E Plan: GA with ETT Status Change Before Surgery: No Pre-Antibiotics Drug: Cefoxitin 1gr. Given Within 1 Hr of Incision: Yes Time Given: 09:52 Damián Ellington MD Mar 26, 2018 10:19
[2018-03-26] MEDS ORDERED: LR 1000ml 1,000 ML IVLG SCH (10:20)
[2018-03-26] MEDS: D5 1/2NS 1,000 ML IV SCH ×2 (10:20→23:40)
[2018-03-26] MEDS ORDERED: DiphenhydrAMINE 50mg/ml Inj IVP PRN (10:30)
[2018-03-26] MEDS ORDERED: Meperidine 50mg/ml Inj(FOR RIGORS ONLY) IV PRN (10:30)
[2018-03-26] MEDS ORDERED: Hydromorphone 0.5mg/0.5ml inj IVP PRN (10:30)
[2018-03-26] MEDS ORDERED: Morphine Sulfate 10mg/ml Inj ONE (10:31)
[2018-03-26] MEDS ORDERED: Sodium Chloride 10ml vial INJ ONE (10:32)
[2018-03-26] MEDS ORDERED: Glycopyrrolate 0.2mg/ml 1ml Vial ONE (10:32)
[2018-03-26] MEDS ORDERED: NS Irrig 2000ml IRRIG ONE (10:33)
[2018-03-26] MEDS ORDERED: Surgicel 4in x 8in TOPIC ONE (10:40)
[2018-03-26] MEDS ORDERED: D5 1/2NS 1000ml IV ONE (10:57)
[2018-03-26] MEDS ORDERED: Piperacillin/Tazobactam 3.375 GM in NS 110 ML IVPB ONE (11:00)
--- NOTE | 2018-03-26 11:21 | Brief Operative Note ---
Immediate Post Operative Note Operative Note Pre-op Diagnosis: acute appendicitis Procedure: laparoscopic appendectomy Post-op Diagnosis: acute severe appendicitis Surgeon: kenney Anesthesiologist: smita Anesthesia: general Specimen: yes Complications: none Condition: stable Fluids: see records Estimated Blood Loss: minimal Drains: none Implant(s) used?: No Juan Bryant Mar 26, 2018 11:21
[2018-03-26] MEDS ORDERED: Morphine Sulfate 2mg/ml Inj IVP PRN ×2 (11:30→13:38)
--- NOTE | 2018-03-26 11:34 | Immediate Post-Op Evaluation ---
Immediate Post-Op Evalulation Immediate Post-Op Evalulation Procedure: Laparoscopic appendectomy Date of Evaluation: Mar 26, 2018 Time of Evaluation: 11:33 IV Fluids: 800 Blood Products: none Estimated Blood Loss: <50 Urinary Output: none Blood Pressure Systolic: 155 Blood Pressure Diastolic: 72 Pulse Rate: 68 Respiratory Rate: 20 O2 Sat by Pulse Oximetry: 99 Temperature (Fahrenheit): 97.4 Pain Score (1-10): 2 Nausea: No Vomiting: No Complications none Patient Status: reacts, patent, extubated, none Hydration Status: adequate Damián Ellington MD Mar 26, 2018 11:34
--- NOTE | 2018-03-26 12:30 | NUR ---
NURSE NOTES: returned back from recovery room. A/A/Ox4 and able to make things known. o2 sat upon arrival was 98%. No acute distress noted. lap sites are intact and free from drainage or leakage. HOB elevated. SCDs' are inplaced. siderails are up for safety and call light is within reach. will cont to monitor.
[2018-03-26] MEDS ORDERED: Morphine Sulfate 4mg/ml Inj (IV/IM USE ONLY) IVP PRN (13:37)
[2018-03-26] MEDS ORDERED: Milk of Magnesia 30ml Ud ORAL PRN (13:40)
[2018-03-26] MEDS ORDERED: Ketorolac 30mg Inj IV PRN ×2 (13:40→19:40)
[2018-03-26] MEDS ORDERED: TraZODone 50mg tab ORAL PRN (14:00)
[2018-03-26] MEDS: Acetaminophen 500mg (ES) tab ORAL PRN ×2 (14:01→19:48)
--- NOTE | 2018-03-26 14:02 | NUR ---
NURSE NOTES: Patient after discussed the medication order agreed to receive morphine when RN brings medication patient refused medication returned with witness and Tylenol administered.
--- NOTE | 2018-03-26 15:02 | NUR ---
NURSE NOTES: Patient requested pain medication RN discussed the pain management orders patient requested Toradol RN explained the medication is for breakthrough patient requested he want Tylenol, after Tylenol was given patient reported pain is increasing but still doesn't want to take narcotics RN consulted pharmacist to give the Toradol for break through and it was ok to give. When RN brings the Toradol observed patient taking his own medication RN verified if patient took home medication Pt. stated "yes I took 2 pill of Ibuprofen". RN explained cant take home medication while hospitalized explained the risk and benefit patient stated "leave me alone I need a break" pt. refused to take the antibiotics risk and benefit discussed with the patient verbalized understanding and stated he will receive the medication later will check with the patient shortly . Toradol returned and assigned nurse notified to discuss to obtain home medication. Will follow up.
--- NOTE | 2018-03-26 15:12 | NUR ---
NURSE NOTES: scanned bladder and has 266ml output. will rechecked in an hour. patient experiencing dribbling when he voids. he is up and about to the bathroom. will cont to monitor.
--- NOTE | 2018-03-26 15:36 | NUR ---
NURSE NOTES: notified Dr Bryant regarding the Morphine Sulfate that patient stated "It does not make me pee". Have Toradol change to PRN severe pain from breakthrough. awaits for a response. Addendum: 03/26/18 at 1642 by SARKIS WEAVER LVN new order obtained and implemented. will cont to monitor.
[2018-03-26] MEDS: Piperacillin/Tazobactam 3.375 GM in NS 110 ML IVPB SCH ×2 (15:58→22:00)
--- NOTE | 2018-03-26 16:30 | Operative Note - Dictated ---
DATE OF OPERATION: 03/26/2018 PREOPERATIVE DIAGNOSIS: Acute appendicitis. POSTOPERATIVE DIAGNOSIS: Acute severe appendicitis. OPERATION PERFORMED: Laparoscopic appendectomy. ATTENDING SURGEON: Juan Bryant M.D. ORACLE SOA DEVELOPER: None. ANESTHESIOLOGIST: Damián Ellington M.D. ANESTHESIA: General SERVICES TECH. ESTIMATED BLOOD LOSS: Minimal. IV FLUIDS: Please see anesthesia records. COMPLICATIONS: None. DRAINS: None. SPECIMENS: Appendix sent to pathology for review. COMPLICATIONS: None. DRAINS: None. WOUND CLASSIFICATION: Class 3. IMPLANTS: None. COUNTS: Sponge and needle count correct x2. ANTIBIOTICS: The patient was given 2 g Ancef IV one hour prior to cut time. INDICATIONS FOR PROCEDURE: This is a 62-year-old male, who presented to emergency department after referral from his primary care physician for evaluation of right lower quadrant abdominal pain. The patient initially had generalized mid abdominal discomfort, which then localized to the right lower quadrant approximately 4 days ago and attempted self treatment with oral antibiotics and visited his primary care physician on 03/25/2018 for evaluation, at which time, there were concerns given examination and blood work he had performed in the office for an appendicitis and he was referred to the emergency department. In the emergency department, he was noted to have right lower quadrant tenderness and a CT consistent with acute appendicitis. Surgery was indicated and recommended. Risks, benefits, and alternatives were discussed with the patient in detail, expressed understanding, and consented to surgery. OPERATIVE NOTE: The patient was taken to the operating room and placed on the operating table in supine position with left arm tucked. All bony prominences were well padded. SCDs were placed. Preoperative time-out was taken in identifying the patient, procedure, operative staff, and surgical staff. IV antibiotics were given one hour prior to cut time. Of note, Tabor catheter was inserted given the patient voided prior to entering the operating room. General anesthesia was induced and the patient was intubated. The abdomen was clipped, prepped, and draped in the standard surgical fashion. An infraumbilical incision was made using a fresh #11 scalpel and carried down to the fascia, which was elevated and incised. Entry into the abdomen was obtained using open Yanet technique without complication. A 12 mm Yanet trocar was inserted and the abdomen was insufflated to 12 to 15 mmHg. The patient tolerated the insufflation well. Laparoscope was inserted and the abdomen was inspected. No injury from trocar placement identified. The abdomen was inspected and the right lobe of the liver had blunted edges with a mildly distended gallbladder, but no inflammation. The left lobe of the liver had a nice blunted edge and the stomach was otherwise normal. The bilateral groins were otherwise normal as well as pelvis. In the right lower quadrant, there was some inflammatory changes likely contributing to the appendicitis. Secondary trocars were placed under direct visualization beginning with a 12 mm left lower quadrant port site followed by a 5 mm suprapubic port site. No injury from secondary trocar placement noted. Of note, local anesthetic was infiltrated throughout the procedure for the patient's comfort at skin incision sites and port sites. Laparoscopic grasper was used and the cecum was identified and the teniae noted and followed to the confluence. At the confluence, the cecum was noted to be significantly inflamed and thickened as well as a dilated inflamed short appendix with a very inflamed mesoappendix mesentery. The terminal ileum was identified and the appendix was mobilized. Medially, upon crossing the appendix had a tore off the base of the appendix flushed with the cecum. At this time, the mesoappendix was gently dissected out and given the thickening, stapling device was not appropriate for division and appendiceal artery was identified and doubly clipped and the mesoappendix was divided. The appendix was placed in endoscopic retrieval bag and removed from the left lower quadrant abdominal port. At this time, the base of the cecum was identified and noted to be very thickened and the terminal ileum was very close to the appendiceal orifice. Given these findings, it was not deemed possible to staple the defect closed or clipped close and therefore, 3-0 Vicryl interrupted sutures were used to close the defect. Following this, the defect was identified and good closure noted. The remainder of the bowel was otherwise healthy. The abdomen was irrigated with antibiotic sterile normal saline and suction. At this time, a Surgicel was placed at the mesoappendix site and we began the conclusion of his procedure. Secondary trocars were removed under direct visualization followed by the umbilical trocar site. The umbilical trocar site fascia and left lower quadrant port site fascia were closed using a [id number] #0 Vicryl suture. Remaining skin incisions were cleansed and reapproximated using 4-0 Monocryl subcuticular interrupted sutures. Skin glue and Steri-Strips were applied. The patient tolerated the procedure well, was extubated and taken to postanesthetic care unit in stable condition with plans to admit the patient for monitoring given the operative findings. Juan Bryant M.D. DR: QUOC JOB#: [id number] CC:
[2018-03-26] MEDS: Docusate 100mg cap ORAL SCH (17:27)
--- NOTE | 2018-03-26 18:50 | NUR ---
NURSE NOTES: patient voids in the urinal with 150cc. will keep checking and will endorsed tonight.
--- NOTE | 2018-03-26 19:00 | NUR ---
NURSE NOTES: Informed Dr moulotn regarding tylenol and toradol to change the frequencies and dose for tylenol. new order obtained.
--- NOTE | 2018-03-26 19:30 | NUR ---
NURSE NOTES: RECEIVED PATIENT LYING IN BED, AWAKE, ALERT/ORIENTED X4. S/P LAPAROSCOPIC APPENDECTOMY , LAP SITES X3 ARE DRY AND INTACT, NO DRAINAGE NOTED. NO SIGNS AND SYMPTOMS OF ACUTE CARDIO RESPIRATORY DISTRESS/SHORTNESS OF BREATH, DENIES CHEST PAIN, NO EDEMA NOTED. ABDOMEN FLAT, NON DISTENDED, PASSING FLATULENCE. IV SITE INTACT, NO REDNESS/SWELLING NOTED, TOLERATING IV FLUIDS/CONTINUE ON CLEAR LIQUID DIET, NOT TO BE ADVANCED, PATIENT AWARE. PATIENT VOIDING VIA URINAL. SIDE RAILS UP X2 FOR MOBILITY, BED IN LOWEST POSITION FOR SAFETY, CALL LIGHT WITHIN REACH AT ALL TIMES. NAD.
--- NOTE | 2018-03-26 19:35 | NUR ---
HAND-OFF: Report given to Atif.
[2018-03-26] MEDS: Ketorolac 30mg Inj IV PRN (23:32)
[2018-03-27] VITALS (7 sets, daily range): BP systolic 116–153; BP diastolic 67–90
[2018-03-27] MEDS: ALPRAZolam 0.5mg tab ORAL PRN ×2 (00:01→06:10)
[2018-03-27] MEDS: D5 1/2NS 1,000 ML IV SCH (04:54)
[2018-03-27] MEDS: Acetaminophen 500mg (ES) tab ORAL PRN (05:04)
[2018-03-27] MEDS: Piperacillin/Tazobactam 3.375 GM in NS 110 ML IVPB SCH ×3 (06:14→21:08)
--- NOTE | 2018-03-27 06:23 | NUR ---
NURSE NOTES: NO DISTRESS NOTED THROUGHOUT THE NIGHT. SAFETY MAINTAINED.
[2018-03-27 07:00] LABS: ANION GAP 8 mmol/L (5-15); BLOOD UREA NITROGEN 15 mg/dL (7-18); CALCIUM 8.6 MG/DL (8.5-10.1); CARBON DIOXIDE 27 MMOL/L (21-32); CHLORIDE 103 MMOL/L (98-107); CREATININE 1.4 MG/DL (0.55-1.30); POTASSIUM 3.5 MMOL/L (3.5-5.1); SODIUM 138 MMOL/L (136-145)
[2018-03-27 07:10] LABS: BASOPHILS % (AUTO) 0.4 % (0.0-2.0); EOSINOPHILS % (AUTO) 3.4 % (0.0-3.0); HEMATOCRIT 39.9 % (42.0-52.0); HEMOGLOBIN 13.7 G/DL (14.2-18.0); LYMPHOCYTES % (AUTO) 15.1 % (20.0-45.0); MEAN CORPUSCULAR VOLUME 96 FL (80-99); NEUTROPHILS % (AUTO) 70.2 % (45.0-75.0); PLATELET COUNT 213 K/UL (150-450); RED BLOOD COUNT 4.14 M/UL (4.70-6.10); RED CELL DISTRIBUTION WIDTH 11.8 % (11.6-14.8); WHITE BLOOD COUNT 7.6 K/UL (4.8-10.8)
--- NOTE | 2018-03-27 07:30 | NUR ---
HAND-OFF: Report given to JOSÉ WALTERS.
[2018-03-27] MEDS: Lisinopril 20mg tab ORAL SCH (08:33)
[2018-03-27] MEDS: Docusate 100mg cap ORAL SCH ×2 (08:33→17:32)
--- NOTE | 2018-03-27 08:57 | NUR ---
NURSE NOTES: patient is Awake and alert. tolerating clears and voiding without any pain/discomfort. flatus present and been walking at the nurses station. bed kept in the lowest position. call light is within reach and saiderails are up x2. will cont the plan of care.
[2018-03-27] MEDS ORDERED: Lisinopril 20mg tab ORAL SCH (09:00)
[2018-03-27] MEDS: Ketorolac 30mg Inj IV PRN (10:07)
--- NOTE | 2018-03-27 11:38 | NUR ---
CASE MANAGEMENT: INITIAL REVIEW 62 YO M PRESENTED TO ED FROM HOME CC: ABD PAIN PMHx: HTN. SI:ABD PAIN. T 98.4 HR 78 RR 17 B/P 145/88 SATS 99% ON RA CR 1.4 IS: ZOFRAN IV X1 ZOSYN IV X1 NS BOLUS X1 PATIENT ADMITTED TO MED/SURG 03/25/2018 @ 1828 DCP: PATIENT TO BE DISCHARGED TO HOME ONCE MEDICALLY CLEARED. PLAN OF CARE: DATE OF OPERATION: 03/26/2018 PREOPERATIVE DIAGNOSIS: Acute appendicitis. POSTOPERATIVE DIAGNOSIS: Acute severe appendicitis. OPERATION PERFORMED: Laparoscopic appendectomy. 03/27/2018 SI:ABD PAIN. T 98.2 HR 70 RR 20 B/P 124/67 SATS 97% ON RA CR 1.4 GLU 110 IS: IVF @ 75 mL/HR ZOSYN IV Q8H LISINOPRIL PO QD PATIENT ADMITTED TO MED/SURG 03/25/2018 @ 1828 DCP: PATIENT TO BE DISCHARGED TO HOME ONCE MEDICALLY CLEARED. PLAN OF CARE: POST OP CARE Addendum: 03/27/18 at 1518 by Rosey Alfred CM INTERQUAL MET FOR ACUTE
--- NOTE | 2018-03-27 11:44 | General Progress Note ---
Assessment/Plan Assessment/Plan #Acute appendicitis -POD#1 s/p appendectomy -continue IV antibiotics -Advance diet as per Surgery recs -Continue IS, analgesics, VTE PPx -Add ibuprofen per patient request -Stop Toradol #History of HTN -continue lisinopril #HIV -outpatient follow up VTE PPx SCD Full Code I spent 70 minutes on this patient's case, and 35 minutes was dedicated to counseling and/or care coordination. Subjective Date patient seen: Mar 27, 2018 Time patient seen: 11:00 Constitutional: Denies: chills, fever Cardiovascular: Denies: chest pain Respiratory: Denies: cough Gastrointestinal/Abdominal: Reports: abdominal pain; Denies: abdomen distended Allergies: Coded Allergies: No Known Allergies (Unverified , 03/25/18) Subjective Medicine follow up for acute appendicitis, POD#1 s/p laparoscopic appendectomy POD#1 Moderate abd pain, controlled with NSAIDS Does not want narcotics. Patient passed flatus x 1, tolerated clears Objective Last 24 Hour Vital Signs Date Time Temp Pulse Resp B/P (MAP) Pulse Ox O2 Delivery O2 Flow Rate FiO2 03/27/18 10:37 98.2 03/27/18 08:33 124/67 03/27/18 07:56 98.2 70 20 124/67 (86) 97 03/27/18 05:34 98.9 03/27/18 04:00 98.3 64 18 132/79 (96) 96 03/27/18 00:00 99.0 68 18 142/83 (102) 99 03/26/18 21:00 Room Air 03/26/18 20:00 98.9 77 18 136/77 (96) 97 03/26/18 16:00 98.0 88 19 159/90 (113) 100 03/26/18 14:31 97.6 03/26/18 14:15 97.6 70 18 142/80 (100) 97 03/26/18 13:45 98.2 69 19 139/74 (95) 97 03/26/18 13:15 98.2 69 18 144/75 (98) 96 03/26/18 13:00 98.0 68 18 146/79 (101) 96 03/26/18 12:45 98.0 63 18 148/84 (105) 96 03/26/18 12:30 97.1 70 18 165/92 (116) 96 03/26/18 12:15 97.8 69 18 154/86 100 Nasal Cannula 3 69 03/26/18 12:00 70 16 155/85 100 Nasal Cannula 3 70 03/26/18 11:45 71 18 166/83 100 Nasal Cannula 3 71 03/26/18 11:35 68 16 161/86 100 Simple Mask 6 68 Intake and Output 03/26/18 03/27/18 19:00 07:00 Intake Total 632.5 ml 1007.5 ml Output Total 700 ml Balance 632.5 ml 307.5 ml Intake Oral 0 ml 420 ml IV Total 632.5 ml 587.5 ml Output Urine Total 700 ml Laboratory Tests 03/27/18 05:15: White Blood Count 7.6, Red Blood Count 4.14L, Hemoglobin 13.7L, Hematocrit 39.9L , Mean Corpuscular Volume 96, Mean Corpuscular Hemoglobin 33.1H, Mean Corpuscular Hemoglobin Concent 34.4, Red Cell Distribution Width 11.8, Platelet Count 213, Mean Platelet Volume 6.1L, Neutrophils (%) (Auto) 70.2, Lymphocytes ( %) (Auto) 15.1L, Monocytes (%) (Auto) 11.0H, Eosinophils (%) (Auto) 3.4H, Basophils (%) (Auto) 0.4, Sodium Level 138, Potassium Level 3.5, Chloride Level 103, Carbon Dioxide Level 27, Anion Gap 8, Blood Urea Nitrogen 15, Creatinine 1.4H, Estimat Glomerular Filtration Rate 51.2, Glucose Level 110H, Calcium Level 8.6 Height (Feet): 5 Height (Inches): 9.00 Weight (Pounds): 170 General Appearance: no apparent distress, alert Neck: non-tender, supple Cardiovascular: normal peripheral pulses, normal rate, regular rhythm Respiratory/Chest: chest wall non-tender, lungs clear, normal breath sounds Abdomen: other - Hypoactive bowel sounds, soft with moderate tenderness Extremities: normal range of motion, non-tender Slava Cisneros MD Mar 27, 2018 11:44
--- NOTE | 2018-03-27 12:04 | NUR ---
PT Note Patient is has guarded movements due to c/o pain but is independent and steady in gait. no further PT f/u treatments recommended at this time. Addendum: 03/27/18 at 1204 by ANNIE CASTREJON PT Amended: Links added.
--- NOTE | 2018-03-27 13:42 | General Progress Note ---
Progress Note Progress Note Surgery: no acute events. pain somewhat controlled. no n/v/f/c. passing flatus. tolerating clears. afebrile, HD stable, labs okay abd soft, mild distention, incisional and RLQ tenderness. states that he does not do well with narcotics or codine. refuses them at this time. states toradol not working long enough. in discussing best management for his pain states he does well with tylenol and ibuprofen. discussed renal function and states for years has had okay but higher than normal renal function. is aware of risks. not ready for discharge ambulate and out of bed incentive spirometry iv abx iv fluids full liquids rx as written Juan Bryant Mar 27, 2018 13:42
[2018-03-27] MEDS ORDERED: D5 1/2NS 1,000 ML IV SCH (14:00)
--- NOTE | 2018-03-27 15:53 | NUR ---
NURSE NOTES: patient been up and about and walking on the hallway without any s/s of n/v. pain still persist but tolerable. tolerating diet well. voiding well. able to pass gas. call light is within reach. will cont to monitor.
--- NOTE | 2018-03-27 18:13 | NUR ---
NURSE NOTES: patient able to ambulate without any distress and tolerating full liquid well. 3 lap sites are intact and dry. On IVF infusing well. no acute distress noted. will cont to monitor.
--- NOTE | 2018-03-27 19:08 | NUR ---
HAND-OFF: Report given to Leilani.
--- NOTE | 2018-03-27 19:10 | NUR ---
NURSE NOTES: Received a report from JOSÉ López. Pt is in stable condition. AAOX4. Able to make needs known. No respiratory distress noted. On room air. C/o abdominal pain, rated 5/10. Will give pain med once it's due. Abdominal dressings are dry and intact. IV site is patent and intact. Bed in lowest position. Call light within reach. Will continue to monitor.
--- NOTE | 2018-03-27 21:00 | NUR ---
NURSE NOTES: Pt c/o abdominal pain, rated 7/10. Charge Nurse Tulio Mosley said it's ok to give [place] now.
[2018-03-27] MEDS: HYDROcodone/Acetamin 10/325 tab ORAL PRN (21:07)
[2018-03-27] MEDS: Heparin 5000 units/ml inj SUBQ SCH (21:09)
[2018-03-27] MEDS: TraZODone 50mg tab ORAL PRN (23:59)
[2018-03-28] MEDS: ALPRAZolam 0.5mg tab ORAL PRN (01:46)
[2018-03-28 04:00] VITALS: BP 137/85
[2018-03-28] MEDS: Piperacillin/Tazobactam 3.375 GM in NS 110 ML IVPB SCH (05:48)
[2018-03-28] MEDS: HYDROcodone/Acetamin 10/325 tab ORAL PRN (05:56)
--- NOTE | 2018-03-28 07:10 | NUR ---
HAND-OFF: Report given to Kayley Golden RN.
--- NOTE | 2018-03-28 07:17 | 48 Hour Post Anesthesia Eval ---
Post Anesthesia Evaluation Procedure: Laparoscopic appendectomy Date of Evaluation: Mar 28, 2018 Time of Evaluation: 07:15 Blood Pressure Systolic: 128 0: 74 Pulse Rate: 68 Respiratory Rate: 20 Temperature (Fahrenheit): 97.6 O2 Sat by Pulse Oximetry: 98 Airway: patent Nausea: No Vomiting: No Pain Intensity: 3 Hydration Status: adequate Cardiopulmonary Status: stable Mental Status/LOC: patient returned to baseline Follow-up Care/Observations: n/a Post-Anesthesia Complications: none Follow-up care needed: N/A Damián Ellington MD Mar 28, 2018 07:16
--- NOTE | 2018-03-28 07:20 | NUR ---
NURSE NOTES: Ryley Duke RN. Rounding done with outgoing nurse. Patient a/o x4 lying on the bed. No respiratory discomfort noted. Denies pain at this time. Bed in lowest position, call light within reach. Will continue to monitor.
[2018-03-28 07:55] LABS: BASOPHILS % (AUTO) 0.6 % (0.0-2.0); EOSINOPHILS % (AUTO) 5.5 % (0.0-3.0); HEMATOCRIT 42.2 % (42.0-52.0); HEMOGLOBIN 14.7 G/DL (14.2-18.0); LYMPHOCYTES % (AUTO) 15.7 % (20.0-45.0); MEAN CORPUSCULAR VOLUME 96 FL (80-99); MONOCYTES % (AUTO) 10.6 % (1.0-10.0); NEUTROPHILS % (AUTO) 67.6 % (45.0-75.0); PLATELET COUNT 247 K/UL (150-450); RED BLOOD COUNT 4.41 M/UL (4.70-6.10); WHITE BLOOD COUNT 8.5 K/UL (4.8-10.8)
[2018-03-28 08:00] VITALS: BP 145/99
[2018-03-28 08:17] LABS: ANION GAP 8 mmol/L (5-15); BLOOD UREA NITROGEN 10 mg/dL (7-18); CALCIUM 8.3 MG/DL (8.5-10.1); CARBON DIOXIDE 27 MMOL/L (21-32); CHLORIDE 103 MMOL/L (98-107); CREATININE 1.3 MG/DL (0.55-1.30); POTASSIUM 3.7 MMOL/L (3.5-5.1); SODIUM 138 MMOL/L (136-145)
[2018-03-28] MEDS: Docusate 100mg cap ORAL SCH (08:36)
[2018-03-28] MEDS: Acetaminophen 500mg (ES) tab ORAL PRN (08:36)
[2018-03-28] MEDS: Lisinopril 20mg tab ORAL SCH (08:36)
[2018-03-28] MEDS: Heparin 5000 units/ml inj SUBQ SCH (08:37)
--- NOTE | 2018-03-28 10:40 | NUR ---
NURSE NOTES: Bladder scan was done and 115ml checked. Dr. Mari notified.
--- NOTE | 2018-03-28 11:40 | NUR ---
NURSE NOTES: Spoke to regarding discharge with new order - 1. Patient cleared to discharge surgical standpoint. Order noted and carried out. Pain medication prescription kept in chart.
[2018-03-28 12:00] VITALS: BP 138/93
--- NOTE | 2018-03-28 12:12 | Discharge Summary ---
Discharge Summary Hospital Course Date of Admission Mar 25, 2018 at 18:28 Date of Discharge 03/28/18 Admitting Diagnosis Abdominal pain HPI Manjinder Quintana Partner is a 62 year old male who was admitted on Mar 25, 2018 at 18:28 for Abdominal Pain Hospital Course #Acute appendicitis -s/p appendectomy -seen by surgery, transition to oral antibiotics -Diet advanced -Cleared for discharge home #History of HTN -continue lisinopril #HIV -outpatient follow up VTE PPx SCD Full Code I spent 35 minutes discharging the patient which included time spent coordinating discharge with nursing, patient Discharge Medications Continued Medications: Lisinopril (Lisinopril*) 20 Mg Tablet 20 MG ORAL DAILY, TAB Pseudoephedrine Hcl* (Nexafed*) 30 Mg Tablet 30 MG ORAL Q6H PRN for congestion, TAB Testosterone Cypionate (Testosterone Cypionate) 200 Mg/1 Ml Vial 400 MG IM every 2 weeks, VIAL Trazodone Hcl* (Desyrel*) 50 Mg Tablet 50 MG ORAL BEDTIME PRN for insomnia, TAB Discontinued Medications: Acetaminophen* (Acetaminophen Extra Strength*) 500 Mg Tablet 1000 MG ORAL Q6H PRN for chills, TAB 0 Refills Ibuprofen* (Motrin*) 600 Mg Tablet 600 MG ORAL THREE TIMES A DAY PRN for chills, #30 TAB 0 Refills Discharge Discharge Disposition Patient was discharged to home Discharge Diagnoses: (1) Appendicitis Slava Cisneros MD Mar 28, 2018 12:12
--- NOTE | 2018-03-28 12:17 | General Progress Note ---
Progress Note Progress Note Surgery: doing better today. pain improving. no n/v/f/c. labs okay. passing flatus. tolerating diet. ambulatory. abd soft, nd, incisional tenderness, wounds c/d/i discussed operative findings, clinical course, and how he is doing thus far. recovering well. requiring admission and hospital stay after appendectomy given operative findings. base of appendix near necrotic and appendix falling apart from cecal base requiring hand sutured close. very inflamed appendix and cecum! fortunately doing well post op plan for d/c home today Rx written for norco, zanax, mom, augmentin, flagyl. f/u next week instructions given to patient. Juan Bryant Mar 28, 2018 12:17
--- NOTE | 2018-03-28 12:37 | NUR ---
NURSE NOTES: Dr. Mari ordered continue home meds. Noted and carried out.
[2018-03-28] MEDS ORDERED: NORCO 5-325 TA1 EACH ORAL (12:47)
[2018-03-28] MEDS ORDERED: AUGMENTIN 875-1 EAC1 ORAL ×2 (12:52→12:54)
[2018-03-28] MEDS ORDERED: METRONIDAZOLE500 MG ORAL (12:52)
[2018-03-28] MEDS ORDERED: MILK OF MA400 MG/51 ORAL (12:52)
[2018-03-28] MEDS ORDERED: XANAX1 MG ORAL (12:54)
--- NOTE | 2018-03-28 13:10 | NUR ---
NURSE NOTES: Belongings checked with the patient. Discharge instruction was given. Remove IV. Discharged accompanied by friend in stable condition.
[2018-03-28] MEDS ORDERED: Tamsulosin 0.4mg cap ORAL SCH (21:00)
--- NOTE | 2018-03-29 09:34 | NUR ---
*-* INSURANCE *-* [employer] F:[phone] P:[phone]
--- NOTE | 2018-03-29 14:25 | Cardiology Report ---
APPROVED REPORT EKG Measurement Heart [id number] Normal sinus rhythm Normal ECG
== END 2018-03-28 13:10 | disposition home or self-care (01) | DRG 342 ==
LOC: EMR 17:37 → 3E 18:28 → EDBEDREQ 18:49
PROC: 0DTJ4ZZ Resection of Appendix, Percutaneous Endoscopic Approach (ICD-10-PCS; principal; 2018-03-26 09:30)
DX: K35.80 Unspecified acute appendicitis (principal); B20 Human immunodeficiency virus [HIV] disease; I10 Essential (primary) hypertension; E78.5 Hyperlipidemia, unspecified
CPT/HCPCS: 36415; 74177; 80048; 80053; 81001; 81003; 83690; 84484; 85025; 85610; 85730; 86850; 86900; 86901; 93005; 94003; 94150; 96361; 96365; 99285; J2250; J2405; J2710